=== PATIENT | female | born 1985 | race Caucasian/White ===

== ENCOUNTER 2022-11-06 14:40 | Emergency (ER) | payer MEDICAID ==
[~2022-11-06] VITALS: Ht 154.9 cm; Wt 102.3 kg
[2022-11-06 14:48] VITALS: BP 139/88
[2022-11-06 15:14] LABS: BASOPHILS % 0.6 % (0.0-2.0); EOSINOPHILS % 1.5 % (0.0-5.0); HEMATOCRIT. 38.8 % (36.0-48.0); HEMOGLOBIN. 13.4 g/dL (12.0-16.0); LYMPHOCYTES % 26.1 % (20.0-50.0); MEAN CORPUSCULAR HEMOGLOBIN 29.9 pg (28.0-32.0); MEAN CORPUSCULAR VOLUME 86.8 fL (81.0-99.0); MEAN PLATELET VOLUME 7.8 fl (7.4-10.4); MONOCYTES % 5.6 % (2.0-8.0); NEUTROPHILS % 66.2 % (40.0-76.0); PLATELET 325 x1000/uL (130-400); RED BLOOD CELL COUNT 4.47 mill/uL (4.2-5.4); RED CELL DISTRIBUTION WIDTH 13.9 % (11.6-14.6)
[2022-11-06 15:26] LABS: CHLORIDE 109 mEq/L (98-107)
== END 2022-11-07 02:32 | disposition left against medical advice (07) ==
LOC: ER 14:40
DX: Z53.21 Procedure and treatment not carried out due to patient leaving prior to being seen by health care provider (principal); I49.9 Cardiac arrhythmia, unspecified
CPT/HCPCS: 36415; 71045; 80053; 84484; 85025; 93005; 99281